=== PATIENT | female | born 1985 | race African-American/Black ===

== ENCOUNTER 2021-07-14 22:08 | Emergency (ER) | payer SELFPAY ==
[~2021-07-14] VITALS: Ht 160 cm; Wt 116.0 kg
[2021-07-14 23:27] LABS: BASOPHILS % 1.1 % (0.0-2.0); EOSINOPHILS % 2.7 % (0.0-5.0); HEMATOCRIT. 38.7 % (36.0-48.0); HEMOGLOBIN. 12.9 g/dL (12.0-16.0); LYMPHOCYTES % 47.3 % (20.0-50.0); MEAN CORPUSCULAR HEMOGLOBIN 27.9 pg (28.0-32.0); MEAN CORPUSCULAR VOLUME 83.5 fL (81.0-99.0); MEAN PLATELET VOLUME 8.2 fl (7.4-10.4); MONOCYTES % 6.8 % (2.0-8.0); NEUTROPHILS % 42.1 % (40.0-76.0); PLATELET 302 x1000/uL (130-400); RED BLOOD CELL COUNT 4.64 mill/uL (4.2-5.4); RED CELL DISTRIBUTION WIDTH 14.4 % (11.6-14.6)
[2021-07-14 23:34] LABS: CHLORIDE 110 mEq/L (98-107)
[2021-07-15] MEDS ORDERED: METHOCARBAMOL 500MG TABLET PO ONE
[2021-07-15] MEDS ORDERED: KETOROLAC 60MG/2ML VIAL IM ONE
[2021-07-15 00:15] VITALS: BP 140/66
[2021-07-15] MEDS ORDERED: NAPR-681 MT (01:49)
[2021-07-15] MEDS ORDERED: METH-773 MT (01:49)
== END 2021-07-15 02:10 | disposition home or self-care (01) ==
LOC: ER 22:08
DX: M54.2 Cervicalgia (principal); R20.2 Paresthesia of skin; J45.909 Unspecified asthma, uncomplicated
CPT/HCPCS: 36415; 70450; 73030; 80053; 85025; 93005; 96372; 99285; J1885